=== PATIENT | female | born 1940 | race Caucasian/White ===

== ENCOUNTER 2024-01-11 13:15 | Emergency (ER) | payer MEDICARE, MEDICAID ==
[~2024-01-11] VITALS: Ht 160 cm; Wt 104.0 kg
[2024-01-11 13:22] VITALS: TEMP 98.4; O2SAT 98
[2024-01-11 16:23] VITALS: BP 137/76; PULSE 72; RESP 16
[2024-01-11] MEDS: MORPHINE SULFATE 4 MG/ML INJ (FOR IV/IM USE) IV ONE (16:23)
[2024-01-11] MEDS: ACETAMINOPHEN 500MG TABLET PO NR (16:38)
[2024-01-11] MEDS: MORPHINE SULFATE 4 MG/ML INJ (FOR IV/IM USE) IV NR (16:39)
[2024-01-11] MEDS ORDERED: IBUP-2029 MT (16:59)
== END 2024-01-11 17:11 | disposition home or self-care (01) ==
LOC: ER 13:15
DX: M25.512 Pain in left shoulder (principal); I10 Essential (primary) hypertension; I25.2 Old myocardial infarction; W18.39XA Other fall on same level, initial encounter; Y93.89 Activity, other specified; Y92.89 Other specified places as the place of occurrence of the external cause; Y99.8 Other external cause status
CPT/HCPCS: 73030; 73080; 99284